=== PATIENT | female | born 1985 | race Caucasian/White ===

== ENCOUNTER 2022-03-01 15:42 | Emergency (ER) | payer BC, SELFPAY ==
--- NOTE | 2022-03-01 16:11 | XR_ITS ---
PROCEDURE INFORMATION: Exam: XR Right Ankle Exam date and time: 03/01/2022 4:16 PM Age: 37 years old Clinical indication: Injury or trauma; Fall; Sprain or strain; Ankle; Right TECHNIQUE: Imaging protocol: XR Right ankle. Views: 3 or more views. COMPARISON: No relevant prior exams. FINDINGS: Bones/joints: Normal. The joint spaces are maintained. No fractures or dislocations. Soft tissues: Normal. No swelling or abnormal density. IMPRESSION: Normal ankle.
--- NOTE | 2022-03-01 16:11 | XR_ITS ---
PROCEDURE INFORMATION: Exam: XR Right Foot Exam date and time: 03/01/2022 4:16 PM Age: 37 years old Clinical indication: Injury or trauma; Fall; Sprain or strain; Foot; Right TECHNIQUE: Imaging protocol: XR Right foot. Views: 3 or more views. COMPARISON: No relevant prior exams. FINDINGS: Bones/joints: Normal. No fractures or dislocations. The joint spaces are intact. Soft tissues: Normal. No swelling or abnormal density. IMPRESSION: No acute findings.
[2022-03-01 16:35] VITALS: BP 147/83; PULSE 84; RESP 18; TEMP 37.3; O2SAT 95; BMI 26.2
--- NOTE | 2022-03-01 17:21 | HMH.EDUTC ---
[facility] Disposition Clinical Impression: Sprain of right foot Qualifiers: Encounter type: initial encounter Qualified Code(s): S93.601A - Unspecified sprain of right foot, initial encounter Disposition: Home, Self-Care Condition on Discharge: Good Instructions: DI for Foot Sprain Additional Instructions: Rest, ice, elevate, keep wrapped/braced. Can take Motrin or Aleve as needed. Minimal weight bearing. Ice for 20 minutes several times a day. Follow up with PCP if not improving Referrals: Rama Fitzpatrick [Primary Care Provider] - Time of Disposition: 17:31 Medical Decision Making - Wilmer Inquiry Pt receiving controlled substance: No Vital Signs: 03/01/22 16:35 Temperature 99.2 F Temperature Source Oral Pulse Rate [Left Radial] 84 Respiratory Rate 18 Blood Pressure [Right Arm] 147/83 H Blood Pressure Mean [Right Arm] 104 02 Sat by Pulse Oximetry 95 - Radiology Data #1 Image(s): Foot/Toes Image Reviewed: Yes I have reviewed radiologist's interpretation Preliminary Findings: Normal/NAD, No Fracture Seen PROCEDURE INFORMATION: Exam: XR Right Foot Exam date and time: 03/01/2022 4:16 PM Age: 37 years old Clinical indication: Injury or trauma; Fall; Sprain or strain; Foot; Right TECHNIQUE: Imaging protocol: XR Right foot. Views: 3 or more views. COMPARISON: No relevant prior exams. FINDINGS: Bones/joints: Normal. No fractures or dislocations. The joint spaces are intact. Soft tissues: Normal. No swelling or abnormal density. IMPRESSION: No acute findings. #2 Image(s): Ankle Image Reviewed: Yes I have reviewed radiologist's interpretation Preliminary Findings: Normal/NAD, No Fracture Seen PROCEDURE INFORMATION: Exam: XR Right Foot Exam date and time: 03/01/2022 4:16 PM Age: 37 years old Clinical indication: Injury or trauma; Fall; Sprain or strain; Foot; Right TECHNIQUE: Imaging protocol: XR Right foot. Views: 3 or more views. COMPARISON: No relevant prior exams. FINDINGS: Bones/joints: Normal. No fractures or dislocations. The joint spaces are intact. Soft tissues: Normal. No swelling or abnormal density. IMPRESSION: No acute findings. [facility] HPI - General Stated complaint: rt foot injury, fall Time Seen by Provider: 03/01/22 17:22 Mode of Arrival: Wheelchair Source of Information: Patient, Significant Other Description of Symptoms (Recalled from Triage Doc. by RN): patient comes in today for fall down stairs. patient injured right ankle. injury occured today. HEENT Symptoms (Recalled from RN notes): No Resp Symptoms (Recalled from RN notes): No Skin Symptoms (Recalled from RN notes): No MS Symptoms (Recalled from RN notes): Yes Functional Status (Recalled from RN notes): wnl - History of Present Illness Provider Complaint: Patient fell down stairs approximately 1 hour [employer]. Got her sandal hung, slid, and landed with her foot and ankle underneath her. Took Motrin for pain. Had instant pain and swelling of foot. Tried to bear weight and it was very painful and she could not. Onset (ago): hour(s) (2) Location: right, lower extremity Radiation: non-radiation Relieving factors: none Exacerbating factors: none Associated symptoms: denies other symptoms Treatments prior to arrival: NSAID - Related Data Allergies Allergy/AdvReac Type Severity Reaction Status Date / Time amoxicillin Allergy Verified 03/01/22 16:37 - Worker's Comp Is this a Worker's Comp case?: No [facility] History - Hepatitis A Screen Attestation statement:: This patient has been screened for Hepatitis A risk factors. I have reviewed the patient's past medical history: Yes ROS Obtained: Yes All systems reviewed & no additional complaints - Musculoskeletal Musculoskeletal: Reports as per HPI, Reports abnormal gait, Reports joint pain, Reports deformity Physical Exam - General General appearance: alert, in no apparent distress - Head Head e
[2022-03-01 17:39] VITALS: BP 147/83; PULSE 84; RESP 18; TEMP 37.3
== END 2022-03-01 17:39 | disposition home or self-care (01) ==
LOC: ER 16:02 → UTC 16:03
PROVIDERS: Emergency Provider Physician Assistant; PCP Family Medicine
DX: S93.601A Unspecified sprain of right foot, initial encounter (principal); W10.9XXA Fall (on) (from) unspecified stairs and steps, initial encounter; Z88.1 Allergy status to other antibiotic agents
CPT/HCPCS: 73610; 73630; 99212; G0463

== ENCOUNTER 2023-09-24 08:00 | Emergency (ER) | payer OTHER, SELFPAY ==
[2023-09-24 08:10] VITALS: BP 140/89; PULSE 98; RESP 19; TEMP 37.2; O2SAT 98; BMI 25.9
--- NOTE | 2023-09-24 08:30 | ED_ITS ---
Discharge Plan Disposition Patient Disposition: Home, Self-Care Condition: Good Prescriptions Prescriptions: New pseudoephedrine HCl [Sudafed 12 Hour] 120 mg tablet extended release 120 mg PO Q12H PRN (Reason: nasal congestion) Qty: 20 0RF No Action fluoxetine 40 mg capsule 40 mg PO DAILY Patient Comments: TAKE 1 CAPSULE BY MOUTH EVERY DAY Alyacen (28) 1-35 mg-mcg tablet 1 tab PO DAILY Qty: 84 3RF Referrals Follow up/Referrals: Rama Fitzpatrick [Primary Care Provider] - See instructions Activity Restrictions/Add. Instructions Additional Instructions/Restrictions: *Monitor Temp, Over the counter Motrin or Tylenol as directed/as needed Tylenol every 4 hours and Motrin every 6 hours (as long as your family doctor has told you that you can take it) for fever or pain. and straight to ER if unable to lower temp less than 101.0 after medication given *Warm salt water gargles may help to soothe the throat *Throat Lozenges? *Warm fluids like tea with honey may help to soothe the throat? *Sleep elevated *Humidifier/Vaporizer Follow up IMMEDIATELY for new or worsening symptoms or no Noticeable improvement over the next 48-72 hours. 911 for difficulty breathing or swallowing You were tested for today for COVID19 your test result should be back in the next 24 hours, you may check your results on the [facility] Portal if your COVID test is positive you must Quarantine for 5 days Clinical Impressions Clinical Impression: Viral syndrome Stand Alone Forms Stand Alone Forms: Work/School Release Instructions Patient Instructions: DI for Viral Syndrome Discharge ED Provider: Kristi Mercedes [facility] HPI General Stated complaint: fever/chills, body aches, congestion Mode of Arrival: Ambulatory Source of Information: Patient Limitations: No Limitations Time Seen by Provider: 09/24/23 08:32 Description of Symptoms (Recalled from Triage Doc. by RN): PATIENT C/O BODY ACHES, FEVER, CONGESTION AND BILATERAL EAR PAIN X 2 DAYS HEENT Symptoms (Recalled from RN notes): Yes Resp Symptoms (Recalled from RN notes): No Skin Symptoms (Recalled from RN notes): No MS Symptoms (Recalled from RN notes): No Functional Status (Recalled from RN notes): WNL History of Present Illness Provider Complaint: Patient states that she was recently was seen and treated for ear infection States that then a couple days ago she started with body aches, fever, congestion, and bilateral ear pain States that she was up most of the night with body aches and chills so she came in Related Data Home Medications Medication Instructions Recorded Confirmed fluoxetine 40 mg capsule 40 mg PO DAILY 03/24/23 09/24/23 Previous Rx's Medication Instructions Recorded norethindrone 1 mg-ethinyl 1 tab PO DAILY #84 tabs 03/24/23 estradiol 35 mcg tablet (Alyacen) pseudoephedrine HCl 120 mg 120 mg PO Q12H PRN nasal 09/24/23 tablet,extended release (Sudafed congestion #20 tabs 12 Hour) Allergies Allergy/AdvReac Type Severity Reaction Status Date / Time amoxicillin Allergy Verified 03/24/23 08:45 Worker's Comp Is this a Worker's Comp case?: No [facility] Disclaimer: The information contained in this section may have been updated after the patient was seen, as this information can be updated by other users. Medical History Endometriosis Surgical History History of salpingectomy right Hx of laparoscopy Hx of sinus surgery Family History Other Heart attack Hyperlipidemia Hypertension Social History Smoking Status: Never smoker alcohol intake: never substance use type: denies use current occupational status: employed Travel in the last 8 weeks: None ROS Obtained: Yes All systems reviewed & no additional complaints except as documented and Yes Systems reviewed as appropriate & no additional complaints except as documented Constitutional Constitutional: Reports system reviewed and no additional complaints, except as documented, Reports as per HPI, Reports body ache, Reports chills, Reports fever(s) and Reports headache(s) ENT Ears, Nose, Mouth, and Throat: Reports system reviewed and no additional complaints, except as documented, Reports as per HPI, Reports otalgia and Reports headache(s) Cardiovascular Cardiovascular: Reports system reviewed and no additional complaints, except as documented and Reports as per HPI Respiratory Respiratory: Reports system reviewed and no additional complaints, except as documented and Reports as per HPI Gastrointestinal Gastrointestingal: Reports system reviewed and no additional complaints, except as documented and as per HPI Neurologic Neurologic: Reports headache(s) Physical Exam General General appearance: alert and in no apparent distress ENT ENT exam: Present mucous membranes moist Expanded ENT Exam TM/Canal exam: Bilateral TM: bulging Nose exam: Absent sinus tenderness Throat exam: Present normal inspection Respiratory Respiratory exam: Present normal lung sounds bilaterally; Absent respiratory distress or wheezes Cardiovascular Cardiovascular exam: Present regular rate, normal rhythm and normal heart sounds Abdominal Exam Abdominal exam: Present soft and normal bowel sounds; Absent distention or tenderness Neurological Exam Neurological exam: Present alert, oriented X3 and normal gait Medical Decision Making Wilmer Inquiry Pt receiving controlled substance: No Wilmer was queried for this patient: No Vital Signs: 09/24/23 08:10 Temperature 98.9 F Temperature Source Oral Pulse Rate [Left Brachial] 98 H Respiratory Rate 19 Blood Pressure [Left Arm] 140/89 Blood Pressure Mean [Left Arm] 106 Blood Pressure Source [Left Arm] Automatic Cuff Blood Pressure Position [Left Arm] Sitting 02 Sat by Pulse Oximetry 98 Oxygen Delivery Method Room Air Lab Data Lab results reviewed: Yes I reviewed the patient's lab results.
[2023-09-24 08:44] LABS: UTC Influenza A Antigen Negative (Negative); UTC Influenza B Antigen Negative (Negative)
[2023-09-24 08:50] VITALS: BP 140/89; PULSE 98; RESP 19; TEMP 37.2; O2SAT 98
[2023-09-26 09:22] LABS: Influenza A, PCR Not Detected (NotDetected); Influenza B, PCR Not Detected (NotDetected)
[2023-09-26 10:19] LABS: Coronavirus 19, PCR Detected (NotDetected)
== END 2023-09-24 08:54 | disposition home or self-care (01) ==
PROVIDERS: Emergency Provider Nurse Practitioner; PCP Family Medicine
DX: U07.1 COVID-19 (principal); R50.9 Fever, unspecified; R51.9 Headache, unspecified; M79.18 Myalgia, other site; R09.81 Nasal congestion
CPT/HCPCS: 87635; 87636; 87804; 99212; 99214; G0463

== ENCOUNTER 2025-05-24 10:30 | Outpatient (CLI) | payer OTHER, SELFPAY ==
--- OUTSIDE RECORDS SUMMARY | 2025-04-27 16:15 | XMS_ITS | Encounter Summary ---
Author Organization [place] [address] Care Team Providers Care Vocal Performer Name Role Phone Rama Fitzpatrick MD Primary Care Provider Encounter Details Date Type Department Care Team (Late st Contact Info) Description 04/27/2025 4:15 PM EDT Telemedicine [address] [id number] Rama Fitzpatrick MD [address] [place], [place] [id number] Recurrent major depression resistant to treatment (Primary Dx); LAURA (generalized anxiety disorder) Social History Tobacco Use Types Packs/Day Years Used Date Smoking Tobacco: Never Smokeless Tobacco: Never Alcohol Use Standard Drinks/Week Comments Never 0 (1 standard drink = 0.6 oz pur e alcohol) PHQ-2 Answer Date Recorded PHQ-2 Total Score 0 01/12/2025 Sexually Active Control Partners Comments Yes Condom, OCP Male Comments No Sex and Gender Information Value Date Recorded Sex Assigned at Not on file Legal Sex Female 7:43 PM EDT Gender Identity Not on file Sexual Orientation Not on file documented as of this encounter Functional Status * Is the person deaf or does he/she have serious difficulty hearing? Answer Date of Assessment Author No 01/12/2025 9:13 AM EDT Kathleen Anthony RMA * Is the person blind or does he/she have serious difficulty seeing even when wearing glasses? Answer Date of Assessment Author No 01/12/2025 9:13 AM EDT Kathleen Anthony RMA * Does this person have serious difficulty walking or climbing stairs? Answer Date of Assessment Author No 01/12/2025 9:13 AM EDT Kathleen Anthony RMA * Does this person have difficulty dressing or bathing? Answer Date of Assessment Author No 01/12/2025 9:13 AM EDT Kathleen Anthony RMA * Because of a physical, mental or emotional condition, does this person have difficulty doing errands alone such as visiting a doctor's office or shopping? Answer Date of Assessment Author No 01/12/2025 9:13 AM EDKathleen Khan RMA documented as of this encounter Mental Status * Because of a physical, mental or emotional condition, does this person have serious difficulty concentrating, remembering or making decisions? Answer Entry Date Author No 01/12/2025 9:13 AM Kathleen Zamudio RMA documented in this encounter Ordered Prescriptions Prescription Sig Dispense Quantity Refills Last Filled Start Date End Date ARIPiprazole (ABILIFY) 5 mg Oral TabletIndications: Recurrent major depression resistant to treatment Take 1 Tablet by mouth daily. 30 Tablet 11 04/27/2025 busPIRone (BUSPAR) 15 mg Oral TabletIndications: LAURA (generalized anxiety disorder) Take 2 Tablets by mouth 2 times daily as needed. 120 Tablet 2 04/27/2025 busPIRone (BUSPAR) 15 mg Oral TabletIndications: LAURA (generalized anxiety disorder) Take 2 Tablets by mouth 2 times daily as needed. 120 Tablet 2 04/27/2025 documented in this encounter Progress Notes * Rama Fitzpatrick MD - 04/27/2025 4:15 PM EDT Patient presented today for routine care follow-up through a video visit. Patient has reviewed the terms and conditions of service as part of the registration for today's visit. A video visit does not replace a [id number] exam and further services may be necessary. We are conducting her video visit in a private space and this video visit is being conducted in accordance with state telehealth/video visit regulations. HPI: ANXIETY Anxiety is relatively controlled. Mood is stable. Sleep is stable. No SI/HI. Review of Systems Constitutional: Negative for fatigue and fever. HENT: Negative. Respiratory: Negative. Cardiovascular: Negative. Gastrointestinal: Negative. Musculoskeletal: Negative. Skin: Negative. Psychiatric/Behavioral: Positive for dysphoric mood and sleep disturbance. Negative for decreased concentration, self-injury and suicidal ideas. The patient is nervous/anxious. Exam: Constitutional: NAD, appropriately groomed. Appears comfortable. HENT: No gross deformities. Voice normal. No facial swelling noted. Eyes: Extra occular movements grossly intact. Visible portions of the eyes appear normal. No redness or discharge visible via casual video inspection. Cardiopulmonary: Does not appear in cardiopulmonary distress. Easy respirations w/o labored breathing. No audible gross wheezing or breathlessness. Neuro: Alert and oriented. Conversational. No gross deficits or facial droop appreciated on video evaluation. Psych: Appropriate mood and affect. Normal conversation and thought content. Assessment Diagnoses and all orders for this visit: Recurrent major depression resistant to treatment (Chronic) - ARIPiprazole (ABILIFY) 5 mg Oral Tablet; Take 1 Tablet by mouth daily. Dispense: 30 Tablet; Refill: 11 LAURA (generalized anxiety disorder) - busPIRone (BUSPAR) 15 mg Oral Tablet; Take 2 Tablets by mouth 2 times daily as needed. Dispense: 120 Tablet; Refill: 2 documented in this encounter Plan of Treatment Not on file documented as of this encounter Goals Goal Patient Goal Type Associated Problems Recent Progress Patient-Stated? Author Maintain a healthy diet, exercise regularly and maintain an ideal body weight General Ninfa Ritesh Bernice Nunez, [facility] documented as of this encounter Visit Diagnoses Diagnosis Recurrent major depression resistant to treatment- Primary Major depressive disorder, recurrent episode, unspecified LAURA (generalized anxiety disorder) Generalized anxiety disorder documented in this encounter Discontinued Medications Medication Sig Discontinue Reason Start Date End Da te buPROPion (WELLBUTRIN XL) 150 mg Oral Tablet Sustained Release 24 hrIndications:LAURA (generalized anxiety disorder),Obsessive-comp ulsive disorder, unspecified type Take 1 Tablet by mouth every morning. Cancelled by 01/19/2025 04/27/2025 busPIRone (BUSPAR) 15 mg Oral TabletIndications:LAURA (generalized anxiety disorder) Take 2 Tablets by mouth 2 times daily as needed. Reorder 04/27/2025 04/27/2025 documented as of this encounter Care Teams Vocal Performer Relationship Specialty Start Date End Date Rama Fitzpatrick MD [address] [place] [address] PCP - General Family Medicine 11/30/13 documented as of this encounter
--- OUTSIDE RECORDS SUMMARY | 2025-05-24 10:34 | XMS_ITS | Encounter Summary ---
Author Organization [facility] Address [address] [place] [address] Care Team Providers Care Principal Gifts Officer Name Role Phone Unavailable Primary Care Provider Unavailabl e Source Comments This information has been disclosed to you from confidential records protectfrom disclosure by state law. You shall make no further disclosure of thisinformation without the specific, written, and informed release of theindividual to whom it pertains, or as otherwise permitted by law. A generalauthorization for the release of medical or other information is not sufficientfor the purposes of the release of HIV test results or diagnoses. [id number] Health Encounter Details Date Type Department Care Team (Late st Contact Info) Description 11/04/2024 Orders Only [facility] [address] [place] [address] Ernestina Avila, [facility] [address] [place] [address] Neoplasm of uncertain behavior of skin (Primary Dx) Social History Tobacco Use Types Packs/Day Years Used Date Smoking Tobacco: Never Assessed Comments Unknown Sex and Gender Information Value Date Recorded Sex Assigned at Not on file Legal Sex Female 11:09 AM EST Gender Identity Not on file Sexual Orientation Not on file documented as of this encounter Plan of Treatment Not on file documented as of this encounter Visit Diagnoses Diagnosis Neoplasm of uncertain behavior of skin- Primary documented in this encounter
--- OUTSIDE RECORDS SUMMARY | 2025-05-24 10:34 | XMS_ITS | Clinical Summary ---
Author Organization [facility] Address [address] [place] [address] Phone Care Team Providers Care Target Protection Specialist Name Role Phone Rama Fitzpatrick MD Primary Care Provider [phone] Allergies Active Allergy Reactions Criticality Noted Date Comments Amoxicillin Hives Medium 05/19/2012 Fluticasone Rash Low 12/06/2015 Medications ALYACEN , 28, 1-35 mg-mcg Oral TabletIndications: Encounter for surveillance of contraceptive pills TAKE 1 TABLET BY MOUTH EVERY DAY 84 Tab 3 0 Active ipratropium (ATROVENT) 21 mcg (0.03 %) Nasl [place], Non-AerosolIndicat ions:Post-nasal drip USE 2 SPRAYS BY NASAL ROUTE 3 TIMES DAILY FOR 30 DAYS. 30 mL 2 3 Active rosuvastatin (CRESTOR) 10 mg Oral TabletIndications: LAURA (generalized anxiety disorder),Obsessiv e-compulsive disorder, unspecified type,Irritable bowel syndrome with diarrhea Take 1 Tablet by mouth nightly. 90 Tablet 3 5 Active glycopyrrolate (ROBINUL) 1 mg Oral TabletIndications: Drug-induced hyperhidrosis Take 1 Tablet by mouth 2 times daily. 60 Tablet 6 5 Active busPIRone (BUSPAR) 15 mg Oral TabletIndications: LAURA (generalized anxiety disorder) Take 2 Tablets by mouth 2 times daily as needed. 120 Tablet 2 5 Active ARIPiprazole (ABILIFY) 5 mg Oral TabletIndications: Recurrent major depression resistant to treatment Take 1 Tablet by mouth daily. 30 Tablet 11 5 Active Active Problems Patient Care Coordination No te Formatting of this note migh t be different from the original. 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 TSH REFLEX TO FT4; Future CBC WITH DIFF; Future COMPREHENSIVE METABOLIC PANEL; Future LIPID SCREEN; Future FLUoxetine (PROZAC) 40 mg Oral Capsule; Take 1 Capsule by mouth daily for 90 days. 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 TSH REFLEX TO FT4; Future CBC WITH DIFF; Future COMPREHENSIVE METABOLIC PANEL; Future LIPID SCREEN; Future FLUoxetine (PROZAC) 40 mg Oral Capsule; Take 1 Capsule by mouth daily for 90 days. buPROPion (WELLBUTRIN XL) 150 mg Oral Tablet Sustained Release 24 hr; Take 1 Tablet by mouth every morning. Assessment & Plan (01/12/2025 9:42 AM EDT): Cont with prozac Orders: busPIRone (BUSPAR) 15 mg Oral Tablet; Take 1 Tablet by mouth 2 times daily as needed. Assessment & Plan (08/23/2024 6:59 PM EST): Orders: CBC WITH DIFF; Future COMPREHENSIVE METABOLIC PANEL; Future HEMOGLOBIN A1C; Future LIPID SCREEN; Future TSH REFLEX; Future VITAMIN B12/ FOLIC ACID; Future VITAMIN D 25 HYDROXY; Future OCD (obsessive compulsive disorder) 11/30/2013 Assessment & Plan (01/21/2025 8:13 PM EDT): Orders: rosuvastatin (CRESTOR) 10 mg Oral Tablet; Take 1 Tablet by mouth nightly. TSH REFLEX TO FT4; Future CBC WITH DIFF; Future COMPREHENSIVE METABOLIC PANEL; Future LIPID SCREEN; Future FLUoxetine (PROZAC) 40 mg Oral Capsule; Take 1 Capsule by mouth daily for 90 days. buPROPion (WELLBUTRIN XL) 150 mg Oral Tablet Sustained Release 24 hr; Take 1 Tablet by mouth every morning. Resolved Problems Problem Noted Date Diagnosed Date Resolved Date Biceps tendonitis on right 05/29/2022 0 01/12/2025 Subacromial bursitis of right shoulder joint 2 01/12/2025 Chronic right shoulder pain 05/29/2022 01/12/2025 Dermoid cyst 07/06/2019 08/23/2024 Overview (07/06/2019): Added automatically from request for surgery [id number] Encounters Date Type Department Care Team Description 04/27/2025 4:15 PM EDT [facility]medicine [facility] [address] [place] [address] Rama Fitzpatrick MD Recurrent major depression resistant to treatment (Primary Dx); LAURA (generalized anxiety disorder) 04/27/2025 Travel 03/22/2025 2:45 PM EDT Office Visit [facility] [address] [place] [address] Rama Fitzpatrick MD Drug-induced hyperhidrosis (Primary Dx) 03/21/2025 Travel from Last 3 Months Surgical History Surgery Date Site/Laterality Comments MOUTH SURGERY as a child SINUS SURGERY 08/04/2016 Bilateral Frontal & Sphenoid Balloon/ COLONOSCOPY 09/28/2017 - 09/27/2018 LAPAROSCOPY 08/18/2019 Right Diagnositc laparoscopy; Surgeon: Annabelle Martinez MD; Location: [facility]; Service: Gynecology LAPAROSCOPY 11/15/2019 Right DAVINCI ROBOTIC ASSISTED LAPAROSCOPY FOR REMOVAL OF RIGHT RUDIMENTRY UTERINE HORN, WITH CYSTOSCOPY AND RIGHT SALPINGECTOMY ; Surgeon: Annabelle Martinez MD; Location: [facility]; Service: Gynecology CYSTOSCOPY 11/15/2019 N/A Surgeon: Annabelle Martinez MD; Location: [facility]; Service: Gynecology TUBAL LIGATION Medical History Medical History Date Comments Depression Anxiety IBS (irritable bowel syndrome) Dysmenorrhea 01/16/2015 Chronic sinusitis Migraine Dermoid cyst 07/06/2019 Post-operative nausea and vomiting Motion sickness GERD (gastroesophageal reflux disease) Irregular uterine bleeding Bleed ing right after period. Does not happen every month Family History Medical History Relation Name Comments Hearing Loss Father Heart Disease Father High Cholesterol Father Hypertension Father Migraines Father Heart Attack Mother Heart Disease Mother High Blood Pressure Mother Migraines Mother Stroke Mother Allergies Neg Hx Bleeding Prob Neg Hx Cancer Neg Hx Thyroid Disease Neg Hx Relation Name Status Comments Father Alive Mother Alive Social History Tobacco Use Types Packs/Day Years [...] on file Sexual Orientation Not on file Obstetrics History Para Term AB IAB SAB Ectopic Multiple Livin g Live Births 0 0 0 0 0 0 0 0 0 0 Last Filed Vital Signs Vital Sign Reading Time Taken Comments Blood Pressure 122/80 03/22/2025 2:37 PM EDT Pulse 74 11/23/2023 8:33 AM EST Temperature 36.8 C (98.3 F) 03/22/2025 2:37 PM EDT Respiratory Rate 16 11/23/2023 8:33 AM EST Oxygen Saturation 100% 11/23/2023 8:33 AM EST Inhaled Oxygen Concentration - - Weight 70.3 kg (155 lb) 03/22/2025 2:37 PM EDT Height 162.6 cm (5' 4 ) 03/22/2025 2:37 PM EDT Body Mass Index 26.61 03/22/2025 2:37 PM EDT Plan of Treatment Health Maintenance Due Date Last Done Comments DTaP/TDaP/Td (1 - Tdap) 2005 Hepatitis B Vaccine (1 of 3 - 19+ 3-dose series) 2005 Pap Smear 12/26/2023 12/25/2020, 11/28, 12/25/2020, Additional history exists COVID-19 Vaccine ( - 2023- season) 2024 Influenza Vaccine (#1) 2025 7 (Declined), 10/09/2015 (Declined), 01/16/2015 (Declined) Annual Wellness Exam 08/23/2025 08/23/2024, 01/24/2016, 01/16/2015 Cervical Cancer Screening 12/25/2025 HPV/Pap Cotest 12/25/2025 12/25/2020 Meningococcal B Vaccine Aged Out No l onger eligible based on patient's age to complete this topic Pneumococcal Vaccine 0-49 Aged Out No longer eligible based on patient's age to complete this topic Goals Goal Patient Goal Type Associated Problems Recent Progress Patient-Stated? Author Maintain a healthy diet, exercise regularly and maintain an ideal body weight General No Bernice Awad, [place] Procedures Procedure Name Priority Date/Time Associated Diagnosis Comments METALLURGIST PROCESS CYTOLOGY REQUEST (PAP ONLY) Routine 12/25/2020 3:54 PM EDT Encounter for screening for malignant neoplasm of cervix Encounter for gynecological examination (general) (routine) without abnormal findings Encounter for screening for human papillomavirus (HPV) from Last 3 Months or Most Recently Relevant to Health Maintenance Results * METALLURGIST PROCESS CYTOLOGY REQUEST (PAP ONLY) (12/25/2020 3:54 PM EDT) CASE REPORT Gynecologic Cytology Report Case: [id number] Authorizing Provider: Annabelle Martinez MD Collected: 12/25/2020 1554 Ordering Location: [facility] Received: 12/26/2020 0922 First Screen: Eliezer Sidhu CT Rescreen: Alba Adame CT Specimen: LIQUID-BASED PAP - CERVICAL/ENDOCERV ICAL, Cervix, Endocervical 12/27/2020 3:38 PM EDT [facility] PAP FINAL DIAGNOSIS Negative for intraepithelial lesion or malignancy 12/27/2020 3:38 PM EDT [facility] at 1538 EDT MICROSCOPIC DESCRIPTION Microscopic examination is performed and the findings corroborate the diagnosis 12/27/2020 3:38 PM EDT [facility] PAP SMEAR ADEQUACY Satisfactory for evaluation 12/27/2020 3:38 PM EDT [facility] SPECIMEN LIMITATIONS Scant cells 12/27/2020 3:38 PM EDT [facility] ENDOCERVICAL T-ZONE Transformation zone present 12/27/2020 3:38 PM EDT [facility] EMBEDDED IMAGES 3:38 PM EDT [facility] PAP DISCLAIMER The Pap Smear is a screening test that aids in the detection of cervical cancer and cancer precursors. Both false positive and false negative results can occur. The test should be used at regular intervals, and positive results should be confirmed before definitive therapy. Processed using the ThinPrep Director Mobile Automated cytology screening device ([employer] 12/27/2020 3:38 PM EDT [facility] Thin Prep ENDOCERVICAL STRUCTURE / Unknown 12/25/2020 3:54 PM EDT 12/26/2020 9:22 AM EDT Annabelle Martinez MD CYTOLOGY ORDERABLES Final Res ult [facility] [address] [place] [id number] from Last 3 Months or Most Recently Relevant to Health Maintenance Insurance [facility] Care Teams Target Protection Specialist Relationship Specialty Start Date End Date Nanette, Rama Salter MD [address] [place] [address] PCP - General Family Medicine 11/30/13
--- OUTSIDE RECORDS SUMMARY | 2025-05-24 10:34 | XMS_ITS | Encounter Summary ---
Author Organization [facility] [place] [place] [address] Care Team Providers Care Lamp Shade Sewer Name Role Phone Rama Fitzpatrick MD Primary Care Provider [phone] Encounter Details Date Type Department Care Team (Latest Contact Info) Description 04/27/2025 Travel Social History Tobacco Use Types Packs/Day Years [...] of Assessment Author No 01/12/2025 9:13 AM YULISSAT Kathleen Anthony RMA * Does this person have difficulty dressing or bathing? Answer Date of Assessment Author No 01/12/2025 9:13 AM EDT Kathleen Anthony RMA * Because of a physical, mental or emotional condition, does this person have difficulty doing errands alone such as visiting a doctor's office or shopping? Answer Date of Assessment Author No 01/12/2025 9:13 AM EDT Kathleen Anthony RMA documented as of this encounter Mental Status * Because of a physical, mental or emotional condition, does this person have serious difficulty concentrating, remembering or making decisions? Answer Entry Date Author No 01/12/2025 9:13 AM Kathleen Zamudio RMA documented in this encounter Plan of Treatment Not on file documented as of this encounter Goals Goal Patient Goal Type Associated Problems Recent Progress Patient-Stated? Author Maintain a healthy diet, exercise regularly and maintain an ideal body weight General No Bernice Awad, [place] documented as of this encounter Visit Diagnoses Not on filedocumented in this encounter Care Teams Lamp Shade Sewer Relationship Specialty Start Date End Date Rama Fitzpatrick MD [address] [place] [address] PCP - General Family Medicine 11/30/13 documented as of this encounter
--- OUTSIDE RECORDS SUMMARY | 2025-05-24 10:34 | XMS_ITS | Clinical Summary ---
Author Organization [facility] Address [address] [place] [address] Care Team Providers Care Special Day Class Teacher Name Role Phone Unavailable Primary Care Provider Unavailabl e Source Comments This information has been disclosed to you from confidential records protectedfrom disclosure by state law. You shall make no further disclosure of thisinformation without the specific, written, and informed release of theindividual to whom it pertains, or as otherwise permitted by law. A generalauthorization for the release of medical or other information is not sufficientfor the purposes of therelease of HIV test results or diagnoses. [id number] Social History Tobacco Use Types Packs/Day Years Used Date Smoking Tobacco: Never Assessed Comments Unknown Sex and Gender Information Value Date Recorded Sex Assigned at Not on file Legal Sex Female 11:09 AM EST Gender Identity Not on file Sexual Orientation Not on file Plan of Treatment Not on file Insurance [place] [id number] [facility]
--- OUTSIDE RECORDS SUMMARY | 2025-05-24 10:34 | XMS_ITS | Encounter Summary ---
Author Organization [place] [address] Care Team Providers Care Inbound Sales Representative Name Role Phone Rama Fitzpatrick MD Primary Care Provider [phone] Encounter Details Date Type Department Care Team (Late st Contact Info) Description 01/29/2025 Results Follow-Up [address] [address] Rama Fitzpatrick MD [address] [place] [address] TSH REFLEX TO FT4, CBC WITH DIFF, COMPREHENSIVE METABOLIC PANEL, LIPID SCREEN Social History Tobacco Use Types Packs/Day Years Used Date Smoking Tobacco: Never Smokeless Tobacco: Never Alcohol Use Standard Drinks/Week Comments No 0 (1 standard drink = 0.6 oz [...] of Assessment Author No 01/12/2025 9:13 AM Kathleen Zamudio RMA * Does this person have difficulty dressing or bathing? Answer Date of Assessment Author No 01/12/2025 9:13 AM Kathleen Zamudio RMA * Because of a physical, mental or emotional condition, does this person have difficulty doing errands alone such as visiting a doctor's office or shopping? Answer Date of Assessment Author No 01/12/2025 9:13 AM Kathleen Zamudio RMA documented as of this encounter Mental [...] an ideal body weight General No Bernice Awad CCMA documented as of this encounter Visit Diagnoses Not on filedocumented in this encounter Care Teams Inbound Sales Representative Relationship Specialty Start Date End Date Rama Fitzpatrick MD [address] [place] [address] PCP - General Family Medicine 11/30/13 documented as of this encounter
--- OUTSIDE RECORDS SUMMARY | 2025-05-24 10:34 | XMS_ITS | Encounter Summary ---
Author Organization [place] [address] Care Team Providers Care Physician Internist Name Role Phone Rama Fitzpatrick MD Primary Care Provider [phone] Encounter Details Date Type Department Care Team (Late st Contact Info) Description 12/25/2020 Lab Requisition [facility] [address] [place] [place] [address] [place] [address] [place] [address] Encounter for screening for malignant neoplasm of cervix; Encounter for gynecological examination (general) (routine) without abnormal findings; Encounter for screening for human papillomavirus (HPV) Social History Tobacco Use Types Packs/Day Years Used Date Smoking Tobacco: Never Smokeless Tobacco: Never Alcohol Use Standard Drinks/Week Comments No 0 (1 standard drink = 0.6 oz pur e alcohol) PHQ-2 Answer Date Recorded PHQ-2 Score 0 04/21/2019 Sexually Active Control Partners Comments Yes Condom, [...] hearing? Answer Date of Assessment Author No 09/30/2019 3:17 PM Belinda Duke RMA * Is the person blind or does he/she have serious difficulty seeing even when wearing glasses? Answer Date of Assessment Author No 09/30/2019 3:17 PM Belinda Duke RMA * Does this person have serious difficulty walking or climbing stairs? Answer Date of Assessment Author No 09/30/2019 3:17 PM Belinda Duke RMA * Does this person have difficulty dressing or bathing? Answer Date of Assessment Author No 09/30/2019 3:17 PM Belinda Duke RMA * Because of a physical, mental or emotional condition, does this person have difficulty doing errands alone such as visiting a doctor's office or shopping? Answer Date of Assessment Author No 09/30/2019 3:17 PM Belinda Duke RMA documented as of this encounter Mental Status * Because of a physical, mental or emotional condition, does this person have serious difficulty concentrating, remembering or making decisions? Answer Entry Date Author No 09/30/2019 3:17 PM Belinda Duke RMA documented in this encounter Plan of Treatment Not on file documented as of this encounter Goals Goal Patient Goal Type Associated Problems Recent Progress Patient-Stated? Author Maintain a healthy diet, exercise regularly and maintain an ideal body weight General No Bernice Awad, [place] documented as of this encounter Procedures Procedure Name Priority Date/Time Associated Diagnosis Comments CATERING AND EVENTS MANAGER CYTOLOGY REQUEST (PAP ONLY) Routine 12/25/2020 3:54 PM EDT Encounter for screening for malignant neoplasm of cervix Encounter for gynecological examination (general) (routine) without abnormal findings Encounter for screening for human papillomavirus (HPV) HPV HIGH RISK WITH REFLEX TO GENOTYPE Routine 12/25/2020 3:54 PM EDT Encounter for screening for malignant neoplasm of cervix Encounter for gynecological examination (general) (routine) without abnormal findings Encounter for screening for human papillomavirus (HPV) documented in this encounter Results * CATERING AND EVENTS MANAGER CYTOLOGY REQUEST (PAP ONLY) (12/25/2020 3:54 PM EDT) CASE REPORT Gynecologic Cytology Report Case: [id number] Authorizing Provider: Annabelle Martinez MD Collected: 12/25/2020 1554 Ordering Location: [facility] Received: 12/26/2020 0977 First Screen: Eliezer Sidhu, CT Rescreen: Alba Adame, CT Specimen: LIQUID-BASED PAP - CERVICAL/ENDOCERV ICAL, Cervix, Endocervical 12/27/2020 3:[address] [facility] PAP FINAL DIAGNOSIS Negative for intraepithelial lesion or malignancy 12/27/2020 3:[address] [facility] at 1538 EDT MICROSCOPIC DESCRIPTION Microscopic examination is performed and the findings corroborate the diagnosis 12/27/2020 3:[address] [facility] PAP SMEAR ADEQUACY Satisfactory for evaluation 12/27/2020 3:[address] [facility] SPECIMEN LIMITATIONS Scant cells 12/27/2020 3:[address] [facility] ENDOCERVICAL T-ZONE Transformation zone present 12/27/2020 3:[address] [facility] EMBEDDED IMAGES 3:[address] [facility] PAP DISCLAIMER The Pap Smear is a screening test that aids in the detection of cervical cancer and cancer precursors. Both false positive and false negative results can occur. The test should be used at regular intervals, and positive results should be confirmed before definitive therapy. Processed using the ThinPrep Sewing Machine Assembler Automated cytology screening device ([employer]). 12/27/2020 3:[address] [facility] Thin Prep ENDOCERVICAL STRUCTURE / Unknown 12/25/2020 3:54 PM EDT 12/26/2020 9:22 AM EDT us Annabelle Martinez MD CYTOLOGY ORDERABLES Final Res ult [address] [id number] * HPV HIGH RISK WITH REFLEX TO GENOTYPE (12/25/2020 3:54 PM EDT) HPV HR Reflex Not Detected Not Detected 021 2:52 PM EDT PREFERRED [facility] Thin Prep SPECIMEN FROM UTERINE CERVIX / Unknown 12/25/2020 3:54 PM EDT 12/25/2020 6:30 PM EDT Narrative PREFERRED [facility] - 12/26/2020 2:52 PM EDT This test was performed using the FDA Approved APTIMA HPV mRNA assay which detects E6/E7 messenger RNA of High Risk HPV types (16, 18, 31, 33, 35, 39, 45, 51, 52, 56, 58, 59, 66, and 68). This assay is intended for use in women 21 years or older with ASC-US cervical cytology or women 30 years or older. This assay is not intended to substitute for regular cervical cytology screening. Detection of HPV using the APTIMA HPV Assay does not differentiate HPV types and cannot evaluate persistence of any one type. The use of this assay has not been evaluated for the management of HPV vaccinated women, women with prior ablative or excisional therapy, hysterectomy, or who are . Sensitivities may be affected by collection methods, stage of infection, and the presence of interfering substances. Results of this assay should be interpreted in conjunction with other available laboratory and clinical data. Annabelle Martinez MD MICROBIOLOGY - GENERAL [facility] Final Result [facility] [address] [place] [address] , [address] [place] [id number] documented in this encounter Visit Diagnoses Diagnosis Encounter for screening for malignant neoplasm of cervix Screening for malignant neoplasm of the cervix Encounter for gynecological examination (general) (routine) without abnormal findings Encounter for screening for human papillomavirus (HPV) Special screening examination for human papillomavirus (HPV) documented in this encounter Care Teams Physician Internist Relationship Specialty Start Date End Date Rama Fitzpatrick MD [address] [place] [address] PCP - General Family Medicine 11/30/13 documented as of this encounter
[2025-05-24 13:20] LABS: Hepatitis C Ab Qual. W/ RFX NEGATIVE (Negative)
[2025-05-25 09:13] LABS: Hepatitis B Surface Antigen Negative (Negative)
== END 2025-05-24 23:59 | disposition home or self-care (01) ==
PROVIDERS: PCP Family Medicine; Visit Provider Obstetrics & Gynecology
DX: Z01.419 Encounter for gynecological examination (general) (routine) without abnormal findings (principal)
CPT/HCPCS: 36415; 86803; 87340; 87389